=== PATIENT | female | born 1965 | race Caucasian/White ===

== ENCOUNTER 2017-06-20 17:40 | Emergency (ER) | payer BC ==
[2017-06-20 18:21] VITALS: BP 127/77; PULSE 77; RESP 16; TEMP 97.7; O2SAT 98
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
== END 2017-06-20 18:35 | disposition home or self-care (01) ==
DX: S00.83XA Contusion of other part of head, initial encounter (principal); W20.8XXA Other cause of strike by thrown, projected or falling object, initial encounter